=== PATIENT | male | born 1975 | race Caucasian/White ===

== ENCOUNTER → 2023-10-16 06:37 | Day surgery (SDC) | payer OTHER, SELFPAY | LOC: GI 06:37 | PROVIDERS: ATTENDING PHYSICIAN Internal Medicine Gastroenterology | DX: Z12.11 Encounter for screening for malignant neoplasm of colon (principal); K63.5 Polyp of colon; K64.0 First degree hemorrhoids | CPT/HCPCS: 45380; 88305 ==

== ENCOUNTER → 2024-11-24 14:56 | Outpatient (REF) | payer OTHER, SELFPAY | LOC: DHSLP 14:56 | PROVIDERS: ATTENDING PHYSICIAN Nurse Practitioner | DX: G47.33 Obstructive sleep apnea (adult) (pediatric) (principal) | CPT/HCPCS: 95806 ==